=== PATIENT | male | born 1945 | race Caucasian/White ===

== ENCOUNTER 2017-06-11 10:55 | Day surgery (SDC) | payer MEDICARE, OTHER ==
[~2017-06-11 10:55] MED LIST: ACETAMINOPHEN 325 MG TABLET PO PRN; BUPIVACAINE HCL 0.25 % INJ/PF (2.5 MG/1 ML) 30 ML VIAL ONE; CEFAZOLIN 1 GM/D5W RTU 1 GM/50 ML RTUPB IV PRN; GLYCOPYRROLATE INJ 0.4 MG/2 ML VIAL ONE; ONDANSETRON HCL INJ/PF 4 MG/2 ML SDV ONE; PHENYLEPHRINE HCL INJ/PF 10 MG/1 ML SDV ONE; RINGERS SOLUTION,LACTATED 1,000 ML IV PRN; SUCCINYLCHOLINE CHLORIDE INJ 200 MG/10 ML VIAL ONE
[2017-06-11 11:45] LABS: HEMATOCRIT 45.6 % (37.9-51.0); HEMOGLOBIN 15.6 g/dL (13.5-17.0); MEAN CORPUSCULAR HEMOGLOBIN 30.2 pg (27.0-33.4); MEAN CORPUSCULAR HGB CONC 34.1 g/dL (32.0-36.0); MEAN CORPUSCULAR VOLUME 89 fl (80-97); PLATELET COUNT 197 10^3/uL (150-450); RED BLOOD COUNT 5.15 10^6/uL (4.35-5.55); RED CELL DISTRIBUTION WIDTH 13.1 % (11.5-14.0); WHITE BLOOD COUNT 6.7 10^3/uL (4.0-10.5)
[2017-06-11 12:00] LABS: ANION GAP 10 (5-19); BLOOD UREA NITROGEN 25 mg/dL (7-20); CALCIUM 10.1 mg/dL (8.4-10.2); CARBON DIOXIDE 25 mmol/L (22-30); CHLORIDE 109 mmol/L (98-107); GLUCOSE 200 mg/dL (75-110); POTASSIUM 4.9 mmol/L (3.6-5.0); SODIUM 144.1 mmol/L (137-145)
[2017-06-11] MEDS ORDERED: FENTANYL CITRATE INJ/PF 100 MCG/2 ML AMPUL ONE (13:34)
[2017-06-11] MEDS ORDERED: MIDAZOLAM 2 MG/2 ML INJ ONE (13:35)
[2017-06-11] MEDS ORDERED: ACETAMINOPHEN 100 ML IV ONE (13:35)
[2017-06-11] MEDS ORDERED: PROPOFOL INJ 200 MG/20 ML VIAL IV ONE (13:35)
[2017-06-11] MEDS ORDERED: HYDROMORPHONE HCL INJ/PF 2 MG/ML AMPULE ONE (13:36)
[2017-06-11] MEDS ORDERED: MEPERIDINE HCL/PF INJ 25 MG/1 ML DISP.SYRIN IV PRN (14:47)
[2017-06-11] MEDS ORDERED: PROMETHAZINE HCL INJ 25 MG/1 ML VIAL IV PRN ×2 (14:47)
[2017-06-11] MEDS ORDERED: MORPHINE SULFATE 10 MG/ML INJ IV PRN (14:47)
[2017-06-11] MEDS ORDERED: FENTANYL CITRATE INJ/PF 100 MCG/2 ML AMPUL IV PRN ×3 (14:47)
[2017-06-11] MEDS ORDERED: DIPHENHYDRAMINE HCL 50 MG/ML VIAL IV PRN (14:47)
[2017-06-11] MEDS ORDERED: OXYCODONE-ACETAMINOPHEN 5-325 MG TABLET PO PRN (15:22)
[2017-06-11] MEDS ORDERED: ONDANSETRON HCL INJ/PF 4 MG/2 ML SDV IV PRN (15:22)
[2017-06-11] MEDS ORDERED: RINGERS SOLUTION,LACTATED 1,000 ML IV PRN (15:22)
--- NOTE | 2017-06-11 15:22 | Operative Report ---
Operative Report DATE OF SURGERY: 06/11/17 PREOPERATIVE DIAGNOSIS: Recurrent umbilical hernia POSTOPERATIVE DIAGNOSIS: Recurrent umbilical hernia OPERATION: Recurrent umbilical hernia repair SURGEON: MARIA DEL CARMEN MATTHEWS ANESTHESIA: GA TISSUE REMOVED OR ALTERED: None COMPLICATIONS: None ESTIMATED BLOOD LOSS: Minimal INTRAOPERATIVE FINDINGS: two half centimeter defects at the supraumbilical region with incarcerated omentum PROCEDURE: Informed consent was obtained. Patient was brought to the operating room placed on the operating room table in the supine position. After satisfactory induction of general anesthesia, patient's abdomen was prepped and draped in usual sterile fashion. A transverse incision was made overlying his previous supraumbilical periumbilical incision. Dissection was carried down through some scar tissue. 2 regions of omental herniation was noted. The omentum was dissected away from the surrounding structures and dissected away from the attachments to the fascia and tucked back into the peritoneal space. The 2 fascial defects were very small each measuring about half centimeter in size. There were connected yielding a total of 1 and 1/2 cm fascial defect. The fascial edges appear strong. Stitches were evident in the fascia. All consistent with a recurrent umbilical hernia. Hernia repair was performed with interrupted Ethibond sutures placed closely apart. The repair came together well without any tension. Hemostasis appeared excellent. Local anesthetic was injected. The skin was closed with deep dermal interrupted Vicryl sutures followed by running subcuticular Monocryl suture. Patient tolerated procedure well with no apparent complications and was taken to the recovery area in stable condition.
--- NOTE | 2017-06-11 15:26 | PDOC DISCHARGE SUMMARY ---
Discharge Summary (SDC) - Discharge Final Diagnosis: Recurrent umbilical hernia Date of Surgery: 06/11/17 Discharge Date: 06/11/17 Condition: Good Treatment or Instructions: Recurrent umbilical hernia repair. May discharge patient home when met discharge criteria. Follow-up with me in 2 weeks. Stay active but avoid strenuous activity. May shower in 2 days. Keep Steri-Strips on. Prescriptions: Oxycodone HCl/Acetaminophen [Percocet 5-325 mg Tablet] 1 tab PO ASDIR PRN #15 tablet PRN Reason: Referrals: HILL SIM MD [Primary Care Provider] - Discharge Diet: As Tolerated Discharge Activity: Activity As Tolerated - Active but avoid strenuous activity. Report the Following to Your Physician Immediately: Fever over 101 Degrees, Unusual Bleeding, Redness, Drainage-Foul Smelling
[2017-06-11 18:18] VITALS: BP 138/74
== END 2017-06-11 18:35 | disposition home or self-care (01) ==
LOC: OROUT 10:55
PROVIDERS: ATTEND Surgery
PROC: 0WQF0ZZ Repair Abdominal Wall, Open Approach (ICD-10-PCS; principal; 2017-06-11 12:45)
DX: K42.9 Umbilical hernia without obstruction or gangrene (principal); I10 Essential (primary) hypertension; E11.9 Type 2 diabetes mellitus without complications; E03.9 Hypothyroidism, unspecified; Z96.653 Presence of artificial knee joint, bilateral; G43.909 Migraine, unspecified, not intractable, without status migrainosus; Z79.899 Other long term (current) drug therapy; Z79.84 Long term (current) use of oral hypoglycemic drugs; Z79.82 Long term (current) use of aspirin; Z86.73 Personal history of transient ischemic attack (TIA), and cerebral infarction without residual deficits
CPT/HCPCS: 36415; 85027; 80048; 49585; J2250; J0690; J1170; J2370; J0330; J2405; J2704; J0131; 750; J3010